=== PATIENT | female | born 1970 | race Two or more races ===

== ENCOUNTER 2024-11-07 12:35 | Emergency (ER) | payer OTHER ==
[~2024-11-07] VITALS: Ht 157.5 cm; Wt 59.0 kg
[2024-11-07 13:00] VITALS: TEMP 98.5
[2024-11-07 13:46] LABS: CALCIUM, SERUM 9.6 mg/dL (8.5-10.1); CARBON DIOXIDE 32 mmol/L (21-32); CHLORIDE 102 mmol/L (98-107); CREATININE 0.9 mg/dL (0.6-1.3); GLUCOSE 94 mg/dL (74-106); SODIUM SERUM 140 mmol/L (136-145); UREA NITROGEN, BLOOD 13 mg/dL (7-18)
[2024-11-07 13:51] LABS: BASOPHILS % (AUTO) 0.3 % (0.0-2.0); EOSINOPHILS # (AUTO) 0.2 K/uL (0.0-0.7); EOSINOPHILS % (AUTO) 2.5 % (0.0-6.0); HEMATOCRIT 41 % (33-45); LYMPHOCYTES # (AUTO) 2.7 K/uL (0.8-4.8); LYMPHOCYTES % (AUTO) 37.3 % (20.0-44.0); MEAN CORPUSCULAR HEMOGLOBIN 29 PG (26.0-33.0); MEAN CORPUSCULAR HGB CONC 34 g/dl (31.0-36.0); MEAN CORPUSCULAR VOLUME 86 fL (82-100); MONOCYTES # (AUTO) 0.6 K/uL (0.1-1.30); MONOCYTES % (AUTO) 8.7 % (2.0-12.0); NEUTROPHILS # (AUTO) 3.7 K/uL (1.8-8.9); NEUTROPHILS % (AUTO) 51.2 % (43.0-81.0); PLATELET COUNT (AUTO) 270 K/uL (150-450); RED BLOOD CELL COUNT(AUTO) 4.78 MIL/uL (4.0-5.2); RED CELL DISTRIBUTION WIDTH 13.7 % (11.5-15.0); WHITE BLOOD COUNT (AUTO) 7.2 K/uL (4.3-11.0)
[2024-11-07 13:59] LABS: ALANINE AMINOTRANSFERASE 25 U/L (12-78); ALBUMIN 3.8 g/dL (3.4-5.0); ALKALINE PHOSPHATASE 92 U/L (46-116); ASPARTATE AMINOTRANSFERASE 22 U/L (15-37); BILIRUBIN,DIRECT 0.2 mg/dL (0.0-0.2); BILIRUBIN,TOTAL 0.6 mg/dL (0.2-1.0); NT-PRO BNP 93 pg/mL (0-125); TOTAL PROTEIN, SERUM 7.7 g/dL (6.4-8.2)
[2024-11-07 14:57] LABS: APPEARANCE,URINE CLEAR (CLEAR); BILIRUBIN,URINE NEGATIVE (NEGATIVE); BLOOD, URINE NEGATIVE Ery/uL (NEGATIVE); COLOR,URINE YELLOW (YELLOW); KETONES,URINE NEGATIVE (NEGATIVE); LEUKOCYTE ESTERASE ,URINE NEGATIVE (NEGATIVE); NITRITE, URINE NEGATIVE (NEGATIVE); PROTEIN,URINE NEGATIVE (NEGATIVE); UGLUCOSE NEGATIVE (NEGATIVE); UROBILINOGEN,URINE 0.2 EU/dL (0.2)
[2024-11-07 16:07] VITALS: BP 120/62; O2SAT 98
== END 2024-11-07 16:09 | disposition home or self-care (01) ==
LOC: ER 13:24
DX: R07.9 Chest pain, unspecified (principal); R10.30 Lower abdominal pain, unspecified; R05.9 Cough, unspecified; R06.02 Shortness of breath; R11.0 Nausea; R42 Dizziness and giddiness; R51.9 Headache, unspecified; Z20.822 Contact with and (suspected) exposure to COVID-19
CPT/HCPCS: 36415; 71045-TC; 80048-TC; 80076-TC; 83880; 84484-TC; 85025-TC

== ENCOUNTER 2025-01-07 22:43 | Emergency (ER) | payer MEDICAID ==
[~2025-01-07] VITALS: Ht 157.5 cm; Wt 59.0 kg
[2025-01-08] MEDS ORDERED: HYDROCODONE/APAP 5/325MG TABLET ONE (00:22)
[2025-01-08] MEDS: HYDROCODONE/APAP 5/325MG TABLET PO ONE (00:27)
[2025-01-08 01:25] VITALS: BP 133/68; TEMP 98.1; O2SAT 99
== END 2025-01-08 01:25 | disposition home or self-care (01) ==
LOC: ER 22:45
DX: S13.4XXA Sprain of ligaments of cervical spine, initial encounter (principal); S43.492A Other sprain of left shoulder joint, initial encounter; S30.0XXA Contusion of lower back and pelvis, initial encounter; S09.90XA Unspecified injury of head, initial encounter; V89.2XXA Person injured in unspecified motor-vehicle accident, traffic, initial encounter; Y93.89 Activity, other specified; Y92.410 Unspecified street and highway as the place of occurrence of the external cause; Y99.8 Other external cause status
CPT/HCPCS: 70450-TC; 72100-TC; 72125-TC; 73030-TC

== ENCOUNTER 2025-10-03 22:36 | Emergency (ER) | payer MEDICAID ==
[~2025-10-03] VITALS: Ht 157.5 cm; Wt 59.0 kg
[2025-10-04] MEDS ORDERED: LIDOCAINE VISCOUS 2% UD 15 ML UDC ONE (00:06)
[2025-10-04] MEDS ORDERED: MAG HYDROX/AL HYDROX/SIMETH 30 ML UDC ONE (00:06)
[2025-10-04] MEDS ORDERED: dexaMETHasone SOD PHOSPHATE 1 ML ONE (00:06)
[2025-10-04] MEDS: LIDOCAINE VISCOUS 2% UD 15 ML UDC MM ONE (00:07)
[2025-10-04] MEDS: dexaMETHasone SOD PHOSPHATE 10 MG/ML VIAL MC ONE (00:07)
[2025-10-04] MEDS: MAG HYDROX/AL HYDROX/SIMETH 30 ML UDC PO ONE (00:07)
[2025-10-04 02:31] VITALS: BP 128/77; TEMP 98.8; O2SAT 98
== END 2025-10-04 02:37 | disposition home or self-care (01) ==
LOC: ER 22:50
DX: J04.0 Acute laryngitis (principal)
CPT/HCPCS: 99284; 70490; 87070; 87880; J1100; 86403-TC